=== PATIENT | female | born 2000 | race Two or more races ===

== ENCOUNTER 2025-07-21 20:02 | Inpatient (IN) | payer OTHER ==
[~2025-07-21] VITALS: Ht 162.6 cm; Wt 75.3 kg
[2025-07-21 19:00] VITALS: BP 118/82
[2025-07-21] MEDS ORDERED: RINGERS SOLUTION,LACTATED 1,000 ML IV SCH (20:45)
[2025-07-21] MEDS ORDERED: FERROUS SULFATE 325 MG TABLET.EC PO SCH (20:49)
[2025-07-21 20:58] LABS: BASO % 0.3 % (0.1-1.2); EOS # 0.02 (0.04-0.54); EOS % 0.3 % (0.7-7.0); LYMPH # 0.95 (1.18-3.74); LYMPH % 13.1 % (19.3-53.1); MEAN PLATELET VOLUME 9.40 fl (9.4-12.4); MONO # 0.45 (0.24-0.82); MONO % 6.2 % (4.7-12.5); NEUT # 5.78 (1.56-6.13); NEUT % 79.5 % (34.0-71.1); RED CELL DISTRIBUTION WIDTH 12.0 % (11.6-14.4)
[2025-07-21 20:59] LABS: URINE APPEARANCE Clear; URINE BILIRRUBIN Small (NEGATIVE); URINE BLOOD Negative; URINE COLOR Dark Yellow; URINE GLUCOSE Negative (NEGATIVE); URINE LEUKOCYTE Trace; URINE NITRATE Negative; URINE PROTEIN 30 (NEGATIVE); URINE UROBILINOGEN 1.0 E.U./dl
[2025-07-21 21:00] LABS: URINE BACTERIA 244.7 uL (0.0-1933); URINE CAST 1.90 uL (0.0-1.40); URINE EPITHELIAL CELLS 54.4 uL (0.0-38.8); URINE KETONE 80 (NEGATIVE); URINE RBC 5.5 uL (0.0-20.8); URINE WBC 10.7 uL (0.0-23.2)
[2025-07-21] MEDS ORDERED: BETAMETHASONE ACETATE,SOD PHOS 30 MG/5 ML ML IM ONE (21:00)
[2025-07-21] MEDS ORDERED: MAGNESIUM SULFATE IN WATER 100 ML IV ONE (21:00)
[2025-07-21] MEDS ORDERED: MAGNESIUM SULFATE IN WATER 50 ML IV SCH (21:00)
[2025-07-21 21:27] LABS: INR 0.98
[2025-07-21] MEDS ORDERED: IRON325 MG (21:27)
[2025-07-21] MEDS ORDERED: PRENATAL TABLE1 EAC1 (21:27)
[2025-07-21 21:31] LABS: ALT/SGPT 16.0 U/L (12-78); AST/SGOT 16.0 U/L (15-37); BILIRUBIN TOTAL 0.52 mg/dL (0.3-1.2); BUN CREA RATIO 15.0 (7.0-25.0); CREATININE SERUM 0.4 mg/dL (0.55-1.02); GFR 194.48; GLOBULINA 3.4 G/DL (2.4-3.5); GLUCOSE FASTING 74.0 mg/dL (65-100); OSMOLALITY SERUM 272.0 MOSM/KG (275-295); TYPE CELLS SQUAMOUS
[2025-07-21 23:23] VITALS: BP 109/67; O2SAT 98
[2025-07-22 03:22] VITALS: BP 103/67; O2SAT 100
[2025-07-22 06:09] VITALS: BP 102/68; O2SAT 99
[2025-07-22] MEDS ORDERED: PNV,CALCIUM 72/IRON/FOLIC ACID 1 TAB TABLET PO SCH (09:00)
[2025-07-22] MEDS ORDERED: FERROUS SULFATE 325 MG TABLET.EC PO SCH (09:00)
[2025-07-22] MEDS ORDERED: METOCLOPRAMIDE HCL 5 MG/ML VIAL IV ONE (09:45)
[2025-07-22 11:03] VITALS: BP 102/67; O2SAT 98
[2025-07-22 15:08] VITALS: BP 93/64
[2025-07-22 20:10] VITALS: BP 107/69
[2025-07-22] MEDS ORDERED: MAGNESIUM SULFATE IN WATER 500 ML IV SCH (21:00)
[2025-07-22] MEDS ORDERED: BETAMETHASONE ACETATE,SOD PHOS 30 MG/5 ML ML IM ONE (21:00)
[2025-07-22 23:14] VITALS: BP 103/65
[2025-07-23 02:54] VITALS: BP 99/64; O2SAT 98
[2025-07-23 06:15] VITALS: BP 97/58; O2SAT 98
== END 2025-07-23 10:03 | disposition home or self-care (01) | DRG 833 ==
LOC: LDR 20:02
PROVIDERS: ADMIT Obstetrics & Gynecology; ATTEND Obstetrics & Gynecology
PROC: 4A1HXCZ Monitoring of Products of Conception, Cardiac Rate, External Approach (ICD-10-PCS; principal; 2025-07-21)
PROC: BY4FZZZ Ultrasonography of Third Trimester, Single Fetus (ICD-10-PCS; 2025-07-22)
DX: O26.893 Other specified pregnancy related conditions, third trimester (principal); R11.2 Nausea with vomiting, unspecified; Z3A.29 29 weeks gestation of pregnancy

== ENCOUNTER 2025-08-20 11:59 | Outpatient (CLI) | payer OTHER ==
[~2025-08-20 11:59] MED LIST: IRON325 MG; PRENATAL TABLE1 EAC1
== END 2025-08-20 15:13 | disposition home or self-care (01) ==
LOC: NST 11:59
PROVIDERS: ATTEND Obstetrics & Gynecology Gynecology
DX: Z34.83 Encounter for supervision of other normal pregnancy, third trimester (principal)

== ENCOUNTER → 2025-09-10 | Outpatient (CLI) | payer OTHER ==
[2025-09-10 14:13] VITALS: BP 109/71
== END | disposition home or self-care (01) ==
LOC: NST 13:52
PROVIDERS: ATTEND Obstetrics & Gynecology
DX: Z34.83 Encounter for supervision of other normal pregnancy, third trimester (principal)

== ENCOUNTER 2025-09-23 14:00 | Inpatient (IN) | payer OTHER ==
[~2025-09-23] VITALS: Ht 162.6 cm; Wt 80.3 kg
[2025-10-01 17:20] VITALS: BP 104/70; BP 107/70
[2025-10-01] MEDS ORDERED: AMPICILLIN SODIUM 2,000 MG VIAL IV ONE (17:30)
[2025-10-01] MEDS ORDERED: MORPHINE SULFATE 4 MG/ML CARTRIDGE IV PRN (17:30)
[2025-10-01] MEDS ORDERED: MISOPROSTOL 25 MCG TABLET VAG ONE (17:30)
[2025-10-01 18:52] LABS: BASO % 0.6 % (0.1-1.2); EOS # 0.02 (0.04-0.54); EOS % 0.3 % (0.7-7.0); LYMPH # 1.03 (1.18-3.74); LYMPH % 14.6 % (19.3-53.1); MEAN PLATELET VOLUME 9.90 fl (9.4-12.4); MONO # 0.44 (0.24-0.82); MONO % 6.3 % (4.7-12.5); NEUT # 5.47 (1.56-6.13); NEUT % 77.6 % (34.0-71.1); RED CELL DISTRIBUTION WIDTH 14.0 % (11.6-14.4)
[2025-10-01 19:17] LABS: INR < 0.93
[2025-10-01 19:20] VITALS: BP 120/81
[2025-10-01] MEDS ORDERED: AMPICILLIN SODIUM 1,000 MG VIAL IV SCH (21:00)
[2025-10-01 23:44] VITALS: BP 112/74
[2025-10-02 02:54] VITALS: BP 116/66
[2025-10-02 04:20] VITALS: BP 116/77
[2025-10-02 07:30] VITALS: BP 110/71
[2025-10-02] MEDS ORDERED: OXYTOCIN 500 ML IV ONE ×2 (07:45)
[2025-10-02] MEDS ORDERED: CHLORHEXIDINE GLUCONATE 120 ML BOTTLE TOP ONE (13:11)
[2025-10-02] MEDS ORDERED: OXYTOCIN 20 UNITS/1000ML RL PIGGYBAG IV ONE (13:11)
[2025-10-02] MEDS ORDERED: LIDOCAINE HCL 1% 10ML VIAL ONE (13:11)
[2025-10-02] MEDS ORDERED: ERYTHROMYCIN BASE OPHT 1GM EACH TUBE OP ONE (13:11)
[2025-10-02] MEDS ORDERED: OXYTOCIN 1,000 ML IV SCH (14:15)
[2025-10-02] MEDS ORDERED: MORPHINE SULFATE 4 MG/ML CARTRIDGE IV PRN (14:15)
[2025-10-02 15:10] VITALS: BP 117/67
[2025-10-02 17:01] VITALS: BP 110/74
[2025-10-02] MEDS ORDERED: OxyCODONE HCL 5 MG TABLET (ROXICODONE) PO PRN (17:45)
[2025-10-03] VITALS: BP 116/71
[2025-10-03 08:00] VITALS: BP 119/80
[2025-10-03 17:07] VITALS: BP 113/78
[2025-10-04] VITALS: BP 115/75
[2025-10-04 08:53] VITALS: BP 11/76
== END 2025-10-04 15:15 | disposition home or self-care (01) | DRG 807 ==
LOC: LDR 09-30 14:00 → OB/GYN 10-02 14:37
PROVIDERS: ADMIT Obstetrics & Gynecology Gynecology; ATTEND Obstetrics & Gynecology Gynecology
PROC: 3E0P7VZ Introduction of Hormone into Female Reproductive, Via Natural or Artificial Opening (ICD-10-PCS; 2025-10-01)
PROC: 4A1HXCZ Monitoring of Products of Conception, Cardiac Rate, External Approach (ICD-10-PCS; 2025-10-01)
PROC: 10E0XZZ Delivery of Products of Conception, External Approach (ICD-10-PCS; principal; 2025-10-02)
PROC: 0UQG7ZZ Repair Vagina, Via Natural or Artificial Opening (ICD-10-PCS; 2025-10-02)
PROC: 3E033VJ Introduction of Other Hormone into Peripheral Vein, Percutaneous Approach (ICD-10-PCS; 2025-10-02)
DX: O70.1 Second degree perineal laceration during delivery (principal); O69.81X0 Labor and delivery complicated by cord around neck, without compression, not applicable or unspecified; Z37.0 Single live birth; Z3A.40 40 weeks gestation of pregnancy

== ENCOUNTER 2025-09-27 12:17 | Outpatient (CLI) | payer OTHER | END 2025-09-27 13:10 | disposition home or self-care (01) | LOC: NST 12:17 | PROVIDERS: ATTEND Obstetrics & Gynecology | DX: Z34.83 Encounter for supervision of other normal pregnancy, third trimester (principal) ==